=== PATIENT | female | born 1940 | race Caucasian/White ===

== ENCOUNTER → 2021-05-02 | Outpatient (CLI) | payer MEDICARE ==
--- NOTE | 2021-05-02 16:50 | NM ---
EXAMINATION TYPE: NM bone 3 phase DATE OF EXAM: 05/02/2021 COMPARISON: Plain film 04/24/2021 from [facility] orthopedics. HISTORY: Right hip pain Triple phase bone scintigraphy was performed following the injection of 24.4 mCi Tc 99m MDP. Immedia te images and 5.25 hours post injection images acquired. FINDINGS: Blood flow: Radiotracer distribution appears symmetrical on the blood pool images of the hips and pro ximal lower extremities. Blood pool: Blood pool radiotracer distribution appears normal. Photpenic Defects from prostheses ar e evident. Static images: There is some focal radiotracer accumulation along the inferior medial aspect of the r ight acetabulum. Some mild uptake is along the medial left acetabulum. Photopenic defects from the hi p prostheses are evident. COMPARISON: Radiotracer distribution at the medial left acetabulum appears less than expected for the fracture site. IMPRESSION: There is some uptake in the region of the inferior lateral right acetabulum which would c orrelate with the fracture site. Overall uptake at the fracture site and at the pubic ramus is less t lawrence typically expected for an acute fracture. Consider an aggressive lytic phase metastasis within th e differential.
== END | disposition home or self-care (01) ==
LOC: RADNMMAIN 07:15
PROVIDERS: ATTEND Orthopaedic Surgery
DX: M25.551 Pain in right hip (principal)
CPT/HCPCS: 78315; A9503

== ENCOUNTER → 2024-01-05 | Outpatient (CLI) | payer MEDICARE, BC ==
[2024-01-05 16:04] LABS: ALT 14 U/L (8-44); AST 23 U/L (13-35); Albumin 4.3 g/dL (3.8-4.9); Albumin/Globulin Ratio 2.15 Ratio (1.60-3.17); Alkaline Phosphatase 58 U/L (41-126); Blood Urea Nitrogen 16.4 mg/dL (9.0-27.0); Calcium 9.4 mg/dL (8.7-10.3); Carbon Dioxide 26.5 mmol/L (21.6-31.8); Chloride 106 mmol/L (96-109); Chol/HDL Ratio 2.18 Ratio; Glucose 91 mg/dL (70-110); LDL Cholesterol,Calculated 60.7 mg/dL (0.0-131.0); Potassium 4.8 mmol/L (3.5-5.5); Sodium 142 mmol/L (135-145); Total Bilirubin 0.4 mg/dL (0.3-1.2); Total Protein 6.3 g/dL (6.2-8.2); VLDL Calculation 11.26 mg/dL (5.00-40.00)
== END | disposition home or self-care (01) ==
LOC: LABWHC1 07:13
PROVIDERS: ATTEND Internal Medicine Interventional Cardiology
DX: E78.2 Mixed hyperlipidemia (principal)
CPT/HCPCS: 36415; 80053; 80061

== ENCOUNTER → 2024-06-08 | Outpatient (CLI) | payer MEDICARE, BC ==
[2024-06-08 15:41] VITALS: BP 156/84; PULSE 64; RESP 16; TEMP 97.9
--- NOTE | 2024-06-08 16:29 | P.SLEEP ---
History of Present Illness H&P Date: 06/08/24 Chief Complaint: sleepiness This is a 89-year-old female patient who was referred to me for sleep apnea evaluation. She is known to have atrial fibrillation, has a pacemaker in place. She is also known to have hypothyroidism and hyperlipidemia. The patient is not obese. She carries a body mass index of 24.6. She has been talking slower by her and she has also been told that she quits breathing at night. She wakes up few times in the middle of the night to urinate. She goes to bed at around 10 PM, wakes up 7 AM in the morning. She does take a 30-minute nap in the afternoon. Occasional drinks alcohol. No smoking. No substance abuse. No nighttime chest pain or shortness of breath. No nighttime heartburn. No grinding. No restlessness in lower extremities. Her functionality during the day has been well-preserved. The patient has undergone a pelvic reconstruction surgery and she is having some difficulties with a greater mobility and she walks around with the help of a cane. Her weight has remained stable over the past 10 years. No personal or family history of obstructive sleep apnea. No stroke. Review of Systems Constitutional: Reports daytime sleepiness, Reports fatigue Eyes: denies as per HPI, denies blurred vision, denies bulging eye, denies decreased vision, denies diplopia, denies discharge, denies dry eye, denies irritation, denies itching, denies pain, denies photophobia, denies loss of peripheral vision, denies loss of vision, denies tunnel vision/blind spots Ears: deny: decreased hearing, ear discharge, earache, tinnitus Ears, nose, mouth and throat: Reports as per HPI Breasts: absent: as per HPI, change in shape, gynecomastia, masses, nipple discharge, pain, skin changes, swelling Cardiovascular: Reports as per HPI, Reports irregular heart beat Respiratory: Reports snoring Gastrointestinal: Reports as per HPI Genitourinary: Reports as per HPI Menstruation: Reports as per HPI Musculoskeletal: Reports as per HPI Musculoskeletal: absent: ankle pain, ankle stiffness, ankle swelling, as per HPI, elbow pain, elbow stiffness, elbow swelling, foot pain, foot stiffness, foot swelling, hand pain, hand stiffness, hand swelling, hip pain, hip stiffness, hip swelling, knee pain, knee stiffness, knee swelling, shoulder pain, shoulder stiffness, shoulder swelling, wrist pain, wrist stiffness, wrist swelling Integumentary: Reports as per HPI Neurological: Reports as per HPI, Reports gait dysfunction Psychiatric: Reports as per HPI, Reports sleep disturbances Endocrine: Reports as per HPI, Reports fatigue Hematologic/Lymphatic: Reports as per HPI Allergic/Immunologic: Reports as per HPI Past Medical History Past Medical History: Atrial Fibrillation, Cancer, Hyperlipidemia, Hypertension, Osteoarthritis (OA), Thyroid Disorder Additional Past Medical History / Comment(s): hx: Cervical Cancer History of Any Multi-Drug Resistant Organisms: None Reported Past Surgical History: Hysterectomy, Orthopedic Surgery Additional Past Surgical History / Comment(s): Hip Surgery, pelvic reconstruction surgery, pacemaker history., History of chest tube insertion for pleural effusion Past Anesthesia/Blood Transfusion Reactions: No Reported Reaction Past Psychological History: No Psychological Hx Reported Smoking Status: Never smoker Past Alcohol Use History: Occasional Past Drug Use History: None Reported - Past Family History Brother(s) Family Medical History: Sleep Apnea/CPAP/BIPAP Medications and Allergies Home Medications Medication Instructions Recorded Confirmed Type Apixaban [Eliquis] 5 mg PO BID 06/08/24 06/08/24 History Cholecalciferol (Vitamin D3) 100 mcg PO DAILY 06/08/24 06/08/24 History [Vitamin D3 (125 MCG = 5,000 IU)] Levothyroxine Sodium [Tirosint] 75 mcg PO DAILY 06/08/24 06/08/24 History Metoprolol Tartrate [Lopressor] 12.5 mg PO DAILY 06/08/24 06/08/24 History Simvastatin [Zocor] 20 mg PO HS 06/08/24 06/08/24 History Physical Exam Vitals: Vital Signs Temp Pulse Resp BP Pulse Ox 06/08/24 15:41 97.9 F 64 16 156/84 97 Intake and Output 06/08/24 06/08/24 06/08/24 06:59 14:59 22:59 Other: Weight 69.4 kg The patient appeared well nourished and normally developed. Vital signs as documented. Head exam is unremarkable. No scleral icterus or corneal arcus noted. Neck is without jugular venous distension, thyromegaly, or carotid bruits. Carotid upstrokes are brisk bilaterally. Lungs are clear to auscultation and percussion. Cardiac exam reveals the PMI to be normally sized and situated. Rhythm is irregular consistent with atrial fibrillation. First and second heart sounds normal. No murmurs, rubs or gallops. Abdominal exam reveals normal bowel sounds, no masses, no organomegaly and no aortic enlargement. Extremities are nonedematous and both femoral and pedal pulses are normal. Examination of the skin revealed no evidence of significant rashes, suspicious appearing nevi or other concerning lesions. Neurologically, the patient is awake and alert and the patient does not have any focal neurological deficit. Cranial nerves are essentially intact. Assessment and Plan Plan: Chronic snoring associated with fatigue and limited sleepiness with an [place] score of 8. Consider possibility of obstructive sleep apnea although my overall clinical suspicion is low. Patient has a Mallampati class I. Her body mass index is 24.6. Chronic A-fib Hypothyroidism Hyperlipidemia Hypertension History of cervical cancer History of pacemaker insertion Plan Proceed with screening polysomnography Will evaluate the patient for any nocturnal arrhythmias Will evaluate this patient sleep architecture Will screen this patient for sleep breathing disorder and make further recommen dations if treatment is needed Her sleep hygiene measures are good Maintain regular sleep schedule Will continue to follow. Sleep Note - Sleep Data ESS Total: 8 - Sleep Note Sleep Note: Temperature: 97.9 F Pulse Rate: 64 Respiratory Rate: 16 Blood Pressure: 156/84 SpO2: 97 Height: 5 ft 6 in Weight: 69.4 kg BMI: Neck Circumference: 12.5
== END ==
LOC: 3 N SLEEP 14:24
PROVIDERS: ATTEND Internal Medicine Critical Care Medicine
DX: R06.83 Snoring (principal); R53.83 Other fatigue; I48.20 Chronic atrial fibrillation, unspecified; E03.9 Hypothyroidism, unspecified; E78.5 Hyperlipidemia, unspecified; I10 Essential (primary) hypertension; Z85.41 Personal history of malignant neoplasm of cervix uteri; Z95.0 Presence of cardiac pacemaker; Z79.01 Long term (current) use of anticoagulants; Z79.890 Hormone replacement therapy; Z79.899 Other long term (current) drug therapy
CPT/HCPCS: 99211

== ENCOUNTER 2024-06-17 19:39 | Outpatient (CLI) | payer MEDICARE, BC ==
--- NOTE | 2024-06-28 19:27 | P.PCN ---
Date of Procedure: 06/17/24 Operative Findings: This is a 83-year-old female patient who was referred to me for sleep apnea evaluation. She is known to have atrial fibrillation, has a pacemaker in place. She is also known to have hypothyroidism and hyperlipidemia. The patient is not obese. She carries a body mass index of 24.6. She has been talking slower by her and she has also been told that she quits breathing at night. She wakes up few times in the middle of the night to urinate. She goes to bed at around 10 PM, wakes up 7 AM in the morning. She does take a 30-minute nap in the afternoon. Occasional drinks alcohol. No smoking. No substance abuse. No nighttime chest pain or shortness of breath. No nighttime heartburn. No grinding. No restlessness in lower extremities. Her functionality during the day has been well-preserved. The patient has undergone a pelvic reconstruction surgery and she is having some difficulties with a greater mobility and she walks around with the help of a cane. Her weight has remained stable over the past 10 years. No personal or family history of obstructive sleep apnea. No stroke. Pertinent physical findings The patient's body mass index is 24.7 with a weight of 153 pounds Technical description The patient was studied using a standard complex polysomnography protocol that included recording of the Lead II EKG, Central, occipital and frontal EEG, right and left outer canthus EOG, submental EMG, right and left anterior tibialis EMG, respiratory airflow by thermocouple and or pressure/flow transducer, respiratory efforts by abdominal and thoracic PVDF belts, oxygen saturation by cable oximetry. Position by observation synchronized the PSG. Equipment used: [employer]. Sleep architecture The total recording duration was 449.0 minutes. The total sleep time was 321.0 minutes. The overall sleep efficiency was 71.5%. Latency to sleep onset was 17 minutes. Latency to REM sleep was 137.0 minutes. The sleep architecture was abnormal and there was a total of 23.7% stage I sleep, 70.1% stage II sleep, 0.6% stage III sleep and a total of 5.6% REM sleep. The total arousal index was 23.7. The wake after sleep onset time was 110 minutes. Respiratory analysis There was a total of 272 obstructive events of which 65 were obstructive apneas, 1 was mixed apnea and 206 were obstructive hypopneas. The resulting AHI was 48.2 consistent with severe MATHEW. The patient was essentially in a nonsupine body position. Oxygenation analysis The average pulse ox while awake was 93%. Minimum pulse ox was encountered at 58% during REM sleep. The patient spent approximately 29 minutes of sleep time below pulse ox of 89% which account for 6.6% of the overall sleep study Sleep continuity summary The patient a total of 146 arousals with an index of 27.3. The respiratory arousal index was 12.7 Periodic limb movement summary There was a total of 24 periodic limb movements with an index of 4.5. The patient had a total of 9 periodic limb movement with arousals with an index of 1.7 Cardiac summary Average heart rate was 60 with a minimum heart rate of 58 and a maximum heart rate of 61, rhythm was sinus Assessment Severe symptomatic obstructive sleep apnea with an AHI of 48.2 Nocturnal oxygen desaturation with a minimum pulse ox of 58% during REM sleep Chronic snoring Chronic fatigue and limited sleepiness with an [place] score of 8. body mass index is 24.6. Chronic A-fib Hypothyroidism Hyperlipidemia Hypertension History of cervical cancer History of pacemaker insertion Plan The patient has severe symptomatic obstructive sleep apnea and the patient will benefit from CPAP therapy. Will discuss the finding with the patient and will offer the patient to come into the sleep center to undergo CPAP titration. His disease is severe with an AHI of 48.2 and the patient has architecture problems in her sleep with over representation of stage I and stage II sleep and diminished delta wave). As such, there is benefit for CPAP therapy especially the patient has a high arousal index. Her sleep hygiene measures are good Maintain regular sleep schedule Optimize comorbidities Will continue to follow.
== END 2024-06-18 06:15 | disposition home or self-care (01) ==
LOC: 3 N SLEEP 19:39
PROVIDERS: ATTEND Internal Medicine Critical Care Medicine
DX: G47.33 Obstructive sleep apnea (adult) (pediatric) (principal); G47.36 Sleep related hypoventilation in conditions classified elsewhere; I10 Essential (primary) hypertension; I48.20 Chronic atrial fibrillation, unspecified; E03.9 Hypothyroidism, unspecified; E78.5 Hyperlipidemia, unspecified; Z68.24 Body mass index [BMI] 24.0-24.9, adult; Z85.41 Personal history of malignant neoplasm of cervix uteri; Z95.0 Presence of cardiac pacemaker
CPT/HCPCS: 95810

== ENCOUNTER 2024-08-03 19:33 | Outpatient (CLI) | payer MEDICARE, BC ==
--- NOTE | 2024-08-09 16:39 | P.PCN ---
Date of Procedure: 08/03/24 Operative Findings: CPAP titration report Date of service is 08/03/2024 History This is a 83-year-old female patient who was referred to me for sleep apnea evaluation. She is known to have atrial fibrillation, has a pacemaker in place. She is also known to have hypothyroidism and hyperlipidemia. The patient is not obese. She carries a body mass index of 24.6. She has been talking slower by her and she has also been told that she quits breathing at night. She wakes up few times in the middle of the night to urinate. She goes to bed at around 10 PM, wakes up 7 AM in the morning. She does take a 30-minute nap in the afternoon. Occasional drinks alcohol. No smoking. No substance abuse. No nighttime chest pain or shortness of breath. No nighttime heartburn. No grinding. No restlessness in lower extremities. Her functionality during the day has been well-preserved. The patient has undergone a pelvic reconstruction surgery and she is having some difficulties with a greater mobility and she walks around with the help of a cane. Her weight has remained stable over the past 10 years. No personal or family history of obstructive sleep apnea. No stroke. The patient underwent a polysomnography and the patient was diagnosed having severe symptomatic obstructive sleep apnea with an AHI of 48.2 with nocturnal oxygen desaturation with a minimum pulse ox of 58%. Based on that, the patient is coming in to undergo a CPAP titration study. Pertinent physical findings The patient's body mass index is 24.7 with a weight of 153 pounds Technical description The patient was studied using a standard complex polysomnography protocol that included recording of the Lead II EKG, Central, occipital and frontal EEG, right and left outer canthus EOG, submental EMG, right and left anterior tibialis EMG, respiratory airflow by thermocouple and or pressure/flow transducer, respiratory efforts by abdominal and thoracic PVDF belts, oxygen saturation by cable oximetry. Position by observation synchronized the PSG. Equipment used: [employer]. Stepwise CPAP titration was done to eliminate all obstructive respiratory events. Sleep architecture The total recording duration was 443.5 minutes. The total sleep time was 314.5 minutes. The wake after sleep onset time was 111 minutes. The overall sleep efficiency was 70.9%. The latency to sleep onset was 17.5 minutes. The latency to REM sleep was 240.5 minutes. The sleep architecture was characterized by 0.5% stage I, 80.8% stage II, 4.3% stage III and a total of 14.6% REM sleep. The total arousal index was 9.5 CPAP titration The patient was started on CPAP therapy initially at a pressure of 4 cm of water and the pressure was gradually increased by increments of 1 cm to reach a maximum CPAP pressure of 7 cm of water. This was a successful titration. All obstructive respiratory events were eliminated. The patient encountered all sleep stages including REM sleep. The patient was studied essentially in a sideways body position. Noted even while sleeping on his side and during REM sleep, his CPAP pressure of 7 cm of water was essentially effectively ambulating obstructive respiratory events and maintaining oxygen saturation above 90%. Cardiac summary The patient is average heart rate was 60 n Periodic limb movement summary The patient has a total of 3 periodic limb movement activity associated with arousals with a PLM arousal index of 0.6 Sleep continuity summary A total of 50 arousals were counted with an index of 9.5. The respiratory arousal index was 0 Assessment Severe symptomatic obstructive sleep apnea with an AHI of 48.2, associated with nocturnal oxygen desaturation with a minimum pulse ox of 58% during REM sleep and the patient underwent a successful CPAP titration with complete elimination of the obstructive respiratory events Chronic snoring Chronic fatigue and limited sleepiness with an [place] score of 8. body mass index is 24.6. Chronic A-fib Hypothyroidism Hyperlipidemia Hypertension History of cervical cancer History of pacemaker insertion Plan The patient has severe symptomatic obstructive sleep apnea and the patient will benefit from CPAP therapy. The MATHEW disease is severe with an AHI of 48.2 and the patient has architecture problems in her sleep with over representation of stage I and stage II sleep and diminished delta wave). The patient had a successful CPAP titration with complete illumination of the obstructive respiratory events and received a pressure of 7 cm of water. As such, the patient will be started on CPAP Therapy at a pressure of 7 with a C- Flex of 3. She will be given an AirFit F20 fullface mask small size. Maintain regular sleep schedule Optimize comorbidities The patient was seen back in the office in 30 to 90 days to assess clinical response and compliancy. Will continue to follow. Will continue to follow.
== END 2024-08-04 06:00 | disposition home or self-care (01) ==
LOC: 3 N SLEEP 19:33
PROVIDERS: ATTEND Internal Medicine Critical Care Medicine
DX: G47.33 Obstructive sleep apnea (adult) (pediatric) (principal); I10 Essential (primary) hypertension; E78.5 Hyperlipidemia, unspecified; E03.9 Hypothyroidism, unspecified; I48.20 Chronic atrial fibrillation, unspecified; R53.82 Chronic fatigue, unspecified; R06.83 Snoring; Z95.0 Presence of cardiac pacemaker; Z85.41 Personal history of malignant neoplasm of cervix uteri; Z68.24 Body mass index [BMI] 24.0-24.9, adult
CPT/HCPCS: 95811

== ENCOUNTER → 2024-09-28 | Outpatient (CLI) | payer MEDICARE ==
[2024-09-28 16:07] VITALS: BP 155/82; PULSE 60; RESP 16; TEMP 97.7
--- NOTE | 2024-09-28 19:53 | P.PN ---
Progress Note - Text Progress Note Date: 09/28/24 This is a 83-year-old female patient was rediagnosed having obstructive sleep apnea. The patient underwent a polysomnography due to concerns of sleep apnea and the patient was found to have severe MATHEW with an AHI of 48.2 and the patient was having nocturnal oxygen desaturations with a minimum pulse ox of 58% during REM sleep. Subsequently, the patient underwent a CPAP titration and the patient was successfully titrated to a CPAP pressure of 7 cm of water and treatment was initiated. Today she is coming in for a compliancy check. Overall, the patient is doing well. She is compliant to the treatment. She is benefiting from the treatment. I checked her CPAP machine and the patient is currently being treated with a ResMed 10 and a Simplus medium size fullface mask. Her current CPAP pressure is at 7 cm of water. Based on 30-day compliance data, the patient utilized the machine 29/30 days and the patient has been averaging around 8.4 hours of CPAP use per night. The patient's leak is at 17 L/min and the AHI is still elevated at 11.9. The patient is committed to the treatment. Her sleepiness is improved. She has other comorbidities including atrial fibrillation and the patient has a pacemaker in place. She has hypothyroidism and hyperlipidemia. She is committed to ongoing long-term CPAP therapy. Other comorbidities include cervical cancer. BP is 155/82 with a pulse of 60 and a respiration of 16 and patient's weight is 156 and a temperature is 97.9 The patient appeared well nourished and normally developed. Vital signs as documented. Head exam is unremarkable. No scleral icterus or corneal arcus noted. Neck is without jugular venous distension, thyromegaly, or carotid bruits. Carotid upstrokes are brisk bilaterally. Lungs are clear to auscultation and percussion. Cardiac exam reveals the PMI to be normally sized and situated. Rhythm is regular. First and second heart sounds normal. No murmurs, rubs or gallops. Abdominal exam reveals normal bowel sounds, no masses, no organomegaly and no aortic enlargement. Extremities are nonedematous and both femoral and pedal pulses are normal. Examination of the skin revealed no evidence of significant rashes, suspicious appearing nevi or other concerning lesions. Neurologically, the patient is awake and alert and the patient does not have any focal neurological deficit. Cranial nerves are essentially intact. Assessment Severe MATHEW with an AHI of 48.2 with significant nocturnal oxygen saturations. The patient is currently being treated with a CPAP pressure of 7 cm of water. Compliance is great. Clinical response is good and the patient has no major hypersomnia or sleepiness. Based on my review of the compliance data, the patient continues to have residual obstructive respiratory events and the AHI remains above 5 while being on CPAP therapy. Chronic hypersomnia, improved with CPAP therapy. Baseline [place] score is at 8 Chronic atrial fibrillation History of pacemaker insertion Hypothyroidism Hyperlipidemia Hypertension History of cervical cancer Plan Will continue CPAP therapy. The patient is benefiting from the treatment. She meets insurance standards for compliancy. However, based on the residual obstructive events seen on the compliance data, ongoing to increase the CPAP pressure up to 9 cm of water and the patient was seen back in 2 to 3 months for a final check. Keep the same mask interface. Maintain good sleep hygiene measures. All questions were answered to her satisfaction. Will continue to follow and reevaluate in 2 to 3 months time.
== END ==
LOC: 3 N SLEEP 15:09
PROVIDERS: ATTEND Internal Medicine Critical Care Medicine
DX: G47.33 Obstructive sleep apnea (adult) (pediatric) (principal); I48.20 Chronic atrial fibrillation, unspecified; I10 Essential (primary) hypertension; E78.5 Hyperlipidemia, unspecified; E03.9 Hypothyroidism, unspecified; Z85.848 Personal history of malignant neoplasm of other parts of nervous tissue; Z95.0 Presence of cardiac pacemaker
CPT/HCPCS: 99212